=== PATIENT | female | born 1965 | race American Indian/Alaskan Native ===

== ENCOUNTER 2019-01-14 16:12 | Emergency (ER) | payer MEDICAID ==
--- NOTE | 2019-01-14 16:56 | Emergency Department Report ---
Blank Doc - Documentation Documentation: 53 y/o female comes in for a dog bite that happen this morning around 9 am. P atient reports animal control was notified and dog has his shots. Patient reports that she is UTD on tetanus.
[2019-01-14] MEDS ORDERED: TRIPLE ANTIBIOTIC TP ONE (18:43)
[2019-01-14] MEDS ORDERED: IBUPROFEN PO ONE (18:43)
[2019-01-14] MEDS ORDERED: AUGMENTIN 875 MG PO ONE (18:43)
--- NOTE | 2019-01-14 18:59 | Emergency Department Report ---
ED Animal Bite HPI - General Chief Complaint: Animal Bite Stated Complaint: DOG BITE ON RT THIGH Time Seen by Provider: 01/14/19 18:33 Source: patient Mode of arrival: Ambulatory Limitations: No Limitations - History of Present Illness Initial Comments: This is a 53-year-old female who presents to ED status post dog bite that happened earlier this morning. Patient states thought was a bulldog and states that it was her cousin's friends pet dog. Patient states animal control was contacted and the dog was up-to-date on vaccinations. Patient states she is up-to-date on her tetanus. Other than sustaining a dog bite chao patient has no other complaints. Right: Thigh (4 bite avulsed chao on medial thigh) Animal: dog Animal Control Notified: Yes Description: household pet Mechanism: bite, scratch Severity scale (0 -10): 5 Context: unprovoked Associated Symptoms: denies: cough Treatments Prior to Arrival: wound dressing(s), pressure - Related Data Patient Tetanus UTD: Yes Previous Rx's Medication Instructions Recorded Last Taken Type Amoxicillin/K Clav Tab [Augmentin 1 each PO BID #20 tablet 01/14/19 Unknown Rx 875MG TAB] Ibuprofen [Motrin 800 MG tab] 800 mg PO TID #30 tablet 01/14/19 Unknown Rx Allergies Allergy/AdvReac Type Severity Reaction Status Date / Time No Known Allergies Allergy Unverified 01/14/19 16:15 ED Review of Systems ROS: Stated complaint: DOG BITE ON RT THIGH Other details as noted in HPI Comment: All other systems reviewed and negative ED Past Medical Hx - Past Medical History Previous Medical History?: Yes Hx Hypertension: Yes - Surgical History Past Surgical History?: Yes Additional Surgical History: C section - Social History Smoking Status: Never Smoker Substance Use Type: None - Medications Home Medications: Home Medications Medication Instructions Recorded Confirmed Last Taken Type Amoxicillin/K Clav Tab [Augmentin 1 each PO BID #20 tablet 01/14/19 Unknown Rx 875MG TAB] Ibuprofen [Motrin 800 MG tab] 800 mg PO TID #30 tablet 01/14/19 Unknown Rx ED Physical Exam - General Limitations: No Limitations General appearance: alert, in no apparent distress - Head Head exam: Present: atraumatic, normocephalic - Eye Eye exam: Present: normal appearance - ENT ENT exam: Present: mucous membranes moist - Neck Neck exam: Present: normal inspection - Respiratory Respiratory exam: Present: normal lung sounds bilaterally. Absent: respiratory distress - Cardiovascular Cardiovascular Exam: Present: regular rate, normal rhythm. Absent: systolic murmur, diastolic murmur, rubs, gallop - GI/Abdominal GI/Abdominal exam: Present: soft, normal bowel sounds - Extremities Exam Extremities exam: Present: normal inspection - Back Exam Back exam: Present: normal inspection - Neurological Exam Neurological exam: Present: alert, oriented X3 - Psychiatric Psychiatric exam: Present: normal affect, normal mood - Skin Skin exam: Present: warm, dry, intact, normal color. Absent: rash ED Course Vital Signs 01/14/19 01/14/19 01/14/19 16:47 19:20 19:28 Temperature 98 F 98.6 F Pulse Rate 88 81 Respiratory 18 20 20 Rate Blood Pressure 183/82 Blood Pressure 156/81 [Left] O2 Sat by Pulse 97 98 Oximetry Critical care attestation.: If time is entered above; I have spent that time in minutes in the direct care of this critically ill patient, excluding procedure time. ED Disposition Clinical Impression: Dog bite of thigh without complication Qualifiers: Encounter type: initial encounter Laterality: right Qualified Code(s): S71.151A - Open bite, right thigh, initial encounter Disposition: - TO HOME OR SELFCARE Is pt being admited?: No Does the pt Need Aspirin: No Condition: Stable Instructions: Animal Bite (ED) Additional Instructions: Make sure to follow up with the primary care physician as discussed. Take all your medications as you've been prescribed. If you have any worsening symptoms or develop new symptoms please return to ED immediately. Prescriptions: Amoxicillin/K Clav Tab [Augmentin 875MG TAB] 1 each PO BID #20 tablet Ibuprofen [Motrin 800 MG tab] 800 mg PO TID #30 tablet Referrals: [facility] [Other] - 3-5 Days [facility] [Outside] - 3-5 Days [facility] [Outside] - 3-5 Days Forms: Accompanied Note, Work/School Release Form(ED) Time of Disposition: 19:02 ED Medical Decision Making - Medical Decision Making 53-year-old female presents with dog bite chao to her right medial thigh. Patient received a dose of Augmentin and Motrin in the ED. Wound was cleaned and dressed with triple antibiotic and sterile gauze. Vital signs are normal patient is acute distress. Discussed the patient in follow-up department care physician in 3-5 days. Patient states she understands instructions given. She is alert and oriented 3 she has no neurological deficit and states she will follow up Vital signs are normal ,she is in no distress
[2019-01-14 19:32] VITALS: BP 156/81
== END 2019-01-14 19:27 | disposition home or self-care (01) ==
LOC: ED 16:12
DX: S71.151A Open bite, right thigh, initial encounter (principal); I10 Essential (primary) hypertension; W54.0XXA Bitten by dog, initial encounter; Y93.89 Activity, other specified; Y92.098 Other place in other non-institutional residence as the place of occurrence of the external cause; Y99.8 Other external cause status
CPT/HCPCS: 99283; A6250